=== PATIENT | male | born 1935 | race Caucasian/White ===

== ENCOUNTER → 2017-08-23 | Outpatient (CLI) | payer OTHER | END | disposition home or self-care (01) | LOC: NUCLEAR 07:28 | DX: I25.10 Atherosclerotic heart disease of native coronary artery without angina pectoris (principal); I65.29 Occlusion and stenosis of unspecified carotid artery ==

== ENCOUNTER → 2017-08-24 | Outpatient (CLI) | payer OTHER | END | disposition home or self-care (01) | LOC: NUCLEAR 07:00 | DX: I25.10 Atherosclerotic heart disease of native coronary artery without angina pectoris (principal); E78.2 Mixed hyperlipidemia; R07.89 Other chest pain | CPT/HCPCS: 78452; 93017; A9500 ==

== ENCOUNTER 2020-07-22 09:20 | Outpatient (CLI) | payer OTHER | END 2020-07-22 10:28 | disposition home or self-care (01) | LOC: OFIC 805 09:20 | PROVIDERS: ATTEND Otolaryngology | DX: G47.33 Obstructive sleep apnea (adult) (pediatric) (principal); H91.8X3 Other specified hearing loss, bilateral ==

== ENCOUNTER 2024-10-28 14:23 | Outpatient (CLI) | payer OTHER | END 2024-10-28 14:29 | disposition home or self-care (01) | LOC: MRI 14:23 | PROVIDERS: ATTEND Psychiatry & Neurology Clinical Neurophysiology | DX: G45.1 Carotid artery syndrome (hemispheric) (principal); I63.9 Cerebral infarction, unspecified | CPT/HCPCS: 70551 ==

== ENCOUNTER 2025-04-21 09:03 | Outpatient (CLI) | payer OTHER | END 2025-04-21 09:04 | disposition home or self-care (01) | LOC: RAD 09:03 | PROVIDERS: ATTEND Ophthalmology | DX: R07.9 Chest pain, unspecified (principal) ==